=== PATIENT | male | born 1955 | race Caucasian/White ===

== ENCOUNTER 2020-09-05 16:30 | Outpatient (RCR) | payer BC, SELFPAY ==
[2020-06-11 12:25] VITALS: PULSE 66
--- NOTE | 2020-07-05 09:14 | PCCPR ---
Absent Baljinder is taking his to the MD today.
--- NOTE | 2020-08-06 15:25 | PCCPR ---
unable to attend today due to work.
--- NOTE | 2020-08-20 18:14 | PCCPR ---
Baljinder absent this week due to in family.
== END 2020-09-05 23:59 | disposition home or self-care (01) ==
LOC: ANHCPREHAB 16:30
PROVIDERS: PCP Family Medicine
DX: Z95.2 Presence of prosthetic heart valve (principal)
CPT/HCPCS: 93798

== ENCOUNTER 2020-09-12 16:30 | Outpatient (RCR) | payer BC, SELFPAY ==
[2020-09-10 00:03] VITALS: PULSE 66
== END 2020-09-13 19:30 | disposition home or self-care (01) ==
LOC: ANHCPREHAB 16:30
PROVIDERS: PCP Family Medicine
DX: Z95.2 Presence of prosthetic heart valve (principal)
CPT/HCPCS: 93798

== ENCOUNTER 2025-05-11 09:29 | Outpatient (CLI) | payer MEDICARE, SELFPAY ==
--- NOTE | ~2025-05-11 | XR_ITS ---
XR shoulder RT min 2V 05/11/2025 09:43 Indication: Right shoulder pain Procedure: 4 views right shoulder Comparison: No prior studies for comparison. Findings: No fracture, subluxation or dislocation. There is right glenohumeral joint osteoarthritis. Median sternotomy wires are present. No soft tissue abnormality. Impression: 1: Mild osteoarthritis right glenohumeral joint. Reviewed, dictated and finalized at location A. Impression: 1: Mild osteoarthritis right glenohumeral joint.
== END 2025-05-11 09:30 | disposition home or self-care (01) ==
LOC: MICIMG 09:31
PROVIDERS: PCP Family Medicine; Visit Provider Family Medicine
DX: M19.011 Primary osteoarthritis, right shoulder (principal)
CPT/HCPCS: 73030